=== PATIENT | male | born 1965 | race Caucasian/White ===

== ENCOUNTER 2020-11-19 05:25 | Emergency (ER) | payer OTHER ==
[~2020-11-19] VITALS: Ht 175.3 cm; Wt 123.0 kg
--- NOTE | 2020-11-19 05:45 | NUR ---
PATIENT RESTING IN BED PRESENTING WITH A GRIMACE AND LIMITED MOVEMENT TO RUE DUE TO RIGHT RIB PAIN AFTER FALL A FEW DAYS AGO. PATIENT FELL AND LANDED ON EDGE OF TUB WITH RIGHT RIB/TRUNK AREA. PATIENT STATES THAT PAIN DECREASED A DAY OR SO AFTER AND THEN YESTERDAY BECAME WORSE AFTER ATTENDING DRILL THIS PAST WEEKEND. AT BEDSIDE REPRODUCEABLE PAIN WITH PALPATION. CALL SORENSEN IN REACH. SAFETY MAINTAINED.
[2020-11-19] MEDS ORDERED: KETOROLAC 30 MG/1 ML ONE (05:48)
[2020-11-19] MEDS ORDERED: OXYcodone/APAP 5/325MG TABLET ONE (05:48)
[2020-11-19] MEDS ORDERED: KETOROLAC 30 MG/1 ML IM ONE (06:00)
[2020-11-19] MEDS ORDERED: OXYcodone/APAP 5/325MG TABLET PO ONE (06:00)
--- NOTE | 2020-11-19 06:15 | NUR ---
PATIENT AMBULATING BACK TO ROOM FROM XR WITH STEADY GAIT
--- NOTE | 2020-11-19 06:27 | NUR ---
INCENTIVE SPIROMETER TEACHING PERFORMED WITH PATIENT. PATIENT PERFORMED DEMONSTRATION. 5 REPITIONS COMPLETED WITH RN AT BEDSIDE. RN INSTRUCTED PATIENT TO DO THESE EXERCISES 10REPS EVERY 1 HOUR WHILE AWAKE. PATIENT ACKNOWLEDGED THIS TEACHING. ALL 5 REPITIONS >2,000mL. PATIENT DEMONSTRATED APPROPRIATE USE OF IS. PATIENT ALSO REPORTS PAIN HAS DECREASED SINCE PAIN MEDICATION ADMINISTRATION
[2020-11-19 06:45] VITALS: BP 145/85
--- NOTE | 2020-11-19 06:49 | NUR ---
BEDSIDE REPORT GIVEN TO ANTHONY HOANG BEDSIDE
--- NOTE | 2020-11-19 06:58 | NUR ---
REPORT BEDSIDE BY SHAUNA. CXR COMPLETE
--- NOTE | 2020-11-19 07:17 | NUR ---
Patient given discharge instructions and they have confirmed that they understand the instructions. Patient ambulatory with steady gait.
== END 2020-11-19 07:19 | disposition home or self-care (01) ==
LOC: ED 06:30
DX: S22.31XA Fracture of one rib, right side, initial encounter for closed fracture (principal); W01.0XXA Fall on same level from slipping, tripping and stumbling without subsequent striking against object, initial encounter; Y93.89 Activity, other specified; Y92.89 Other specified places as the place of occurrence of the external cause; Y99.8 Other external cause status
CPT/HCPCS: 71101; 96372; 99283; J1885

== ENCOUNTER → 2021-03-20 | Outpatient (CLI) | payer OTHER ==
[~2021-03-20] MED LIST: OMNIPAQUE 350 MG/ML, 100ML BOTTLE ONE
== END | disposition home or self-care (01) ==
LOC: RAD 15:13
PROVIDERS: ATTEND Physician Assistant
DX: I77.810 Thoracic aortic ectasia (principal)
CPT/HCPCS: 71275; Q9967